=== PATIENT | male | born 1975 | race Two or more races ===

== ENCOUNTER 2022-07-31 11:34 | Emergency (ER) | payer SELFPAY ==
[~2022-07-31] VITALS: Ht 170.2 cm; Wt 74.0 kg
[2022-07-31 16:17] VITALS: BP 120/88
== END 2022-07-31 16:28 | disposition home or self-care (01) ==
LOC: ER 11:34
DX: S09.90XA Unspecified injury of head, initial encounter (principal); M50.30 Other cervical disc degeneration, unspecified cervical region; F17.210 Nicotine dependence, cigarettes, uncomplicated; V80.010A Animal-rider injured by fall from or being thrown from horse in noncollision accident, initial encounter; Y93.89 Activity, other specified; Y92.89 Other specified places as the place of occurrence of the external cause; Y99.8 Other external cause status
CPT/HCPCS: 70450; 71250; 72125; 72192